=== PATIENT | male | born 2000 | race Caucasian/White ===

== ENCOUNTER 2021-02-09 10:36 | Emergency (ER) | payer SELFPAY ==
[2021-02-09 11:03] VITALS: BP 110/68
--- NOTE | 2021-02-09 12:25 | ED Physician Documentation ---
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 She denies body aches. No known Covid exposure but that is the father's specific worry given her health problems. Review of Systems Constitutional: reports: Chills. denies: Myalgias Nose: reports: Rhinorrhea / runny nose Throat: reports: Sore throat Cardiac: denies: Chest pain / pressure Respiratory: denies: Dyspnea, Cough PD PAST MEDICAL HISTORY - Present Medications Home Medications: Ambulatory Orders Medication Instructions Recorded Confirmed No Known Home Medications 02/09/21 02/09/21 - Allergies Allergies/Adverse Reactions: Allergies Allergy/AdvReac Type Severity Reaction Status Date / Time No Known Drug Allergies Allergy Verified 02/09/21 11:03 PD ED PE NORMAL - Vitals Vital signs reviewed: Yes - General General: Alert and oriented X 3 (Appears well and in no distress) - HEENT HEENT: PERRL, EOMI - Neck Neck: Supple, no meningeal sign, No bony TTP - Cardiac Cardiac: RRR, Other (Decrescendo 4 out of 6 systolic murmur heard best in the upper chest) - Respiratory Respiratory: Clear bilaterally - Abdomen Abdomen: Non tender - Derm Derm: No rash - Neuro Neuro: Alert and oriented X 3, Normal speech Results - Vitals Vitals: Vital Signs - 24 hr 02/09/21 10:59 Temperature 36.9 C Heart Rate 90 Respiratory 16 Rate Blood Pressure 110/68 O2 Saturation 99 Oxygen O2 Source Room air - Labs Labs: Laboratory Tests 02/09/21 11:05 Group A Strep Rapid Negative PD MEDICAL DECISION MAKING - ED course ED course: Well-appearing young woman with history of congenital heart disease presents with specific concern for coronavirus. Strep test is negative. Will do a coronavirus test, but specific therapy does not appear merited at this juncture. Departure - Departure Disposition: 01 Home, Self Care Clinical Impression: Viral syndrome, Viral pharyngitis Condition: Good Record reviewed to determine appropriate education?: Yes Instructions: ED Viral Syndrome Comments: You have a Covid test pending. You need to self quarantine until the result is done and negative. Do not leave your house. Do not get near anybody. The results should be done in 48 to 72 hours. We will call with a positive result, the fastest way to get a negative result for confirmation though is to go to the hospital website at [email or web address], click on the my [employer] tab and sign up for the patient portal. If any friends or family get sick and would like to have a Covid test done, but do not have signs or symptoms that would necessitate being hospitalized, we encourage testing through our coronavirus swabbing station, call [phone] to schedule an appointment. Discharge Date/Time: 02/09/21 12:43
[2021-02-09 12:26] LABS: RAPID STREP SCREEN Negative (Negative)
== END 2021-02-09 12:43 | disposition home or self-care (01) ==
LOC: ED 10:36
DX: B34.9 Viral infection, unspecified (principal); Z20.822 Contact with and (suspected) exposure to COVID-19
CPT/HCPCS: 87070; 87077; 87430; 99283